=== PATIENT | female | born 1980 | race Caucasian/White ===

== ENCOUNTER 2020-05-09 16:38 | Emergency (ER) | payer OTHER ==
[2020-05-09 16:42] VITALS: TEMP 98.1
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
[2020-05-09] MEDS ORDERED: HYDROmorphone 1 MG/ML 1 ML SYRINGE IVP STA ×3 (17:00→19:53)
[2020-05-09] MEDS ORDERED: DIPH,PERTUS(ACELL)TETVAC-LF 0.5 ML VIAL IM ONE (17:01)
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
[2020-05-09] MEDS ORDERED: LIDOCAINE 1% INJ 10MG/ML (20 ML MDV) SQ STA (19:54)
--- NOTE | 2020-05-09 19:57 | XR ---
EXAMINATION TYPE: XR ankle limited RT DATE OF EXAM: 05/09/2020 COMPARISON: NONE HISTORY: Post reduction. Splinting. TECHNIQUE: 2 views 2 views were obtained through the cast that show impacted large fracture of the anterior malleolus a nd also vertical fracture through the medial malleolus. There is anterior displacement of the talus. Impression Intra-articular comminuted fracture of the distal tibia as above with mild anterior displacement of t he talus. No dislocation. No significant change in fragment position compared to initial exam.
[2020-05-09] MEDS ORDERED: MIDAZOLAM 1 MG/ML 5 ML VIAL IV STA ×2 (20:49→21:12)
--- NOTE | 2020-05-09 21:34 | XR ---
EXAMINATION TYPE: XR ankle complete RT DATE OF EXAM: 05/09/2020 COMPARISON: Today HISTORY: Post reduction TECHNIQUE: 3 views FINDINGS: There is anatomic reduction of the fracture of the medial and anterior malleolus. Talus is in normal position. IMPRESSION: Satisfactory reduction of the ankle fracture. No complicating process seen.
[2020-05-09] MEDS ORDERED: ACET/COD 300 MG/30 MG STARTER PACK 6 TAB BTL PO STA (21:52)
[2020-05-10 00:46] VITALS: BP 108/69; PULSE 69; RESP 18
== END 2020-05-09 23:00 | disposition home or self-care (01) ==
LOC: EC 16:38
DX: S82.891A Other fracture of right lower leg, initial encounter for closed fracture (principal); Z23 Encounter for immunization; F17.200 Nicotine dependence, unspecified, uncomplicated; V43.52XD Car driver injured in collision with other type car in traffic accident, subsequent encounter; Y92.410 Unspecified street and highway as the place of occurrence of the external cause; Z98.890 Other specified postprocedural states
CPT/HCPCS: 99284; 96374; 96376; 90471; 99156; 99157; 27818; 72170; 73590; 73600; 73610; 71045; 90715; J2001; J2250; J1170

== ENCOUNTER 2022-02-13 13:15 | Emergency (ER) | payer OTHER ==
[2022-02-13 15:04] VITALS: BP 114/82; PULSE 77; RESP 16; TEMP 98.4
[2022-02-13] MEDS ORDERED: AMOXIC-POT CLAV 875-125MG 1 EACH TAB PO STA (15:28)
[2022-02-13] MEDS ORDERED: KETOROLAC 15 MG/ML 1 ML VIAL IM STA (15:29)
--- NOTE | 2022-02-13 15:33 | ED ---
ENT HPI - General Chief complaint: Dental/Oral Stated complaint: Mouth pain Time Seen by Provider: 02/13/22 15:10 Source: patient Mode of arrival: ambulatory Limitations: no limitations - History of Present Illness Initial comments: Patient is a 41-year-old female presenting with chief complaint of dental pain. Patient has a known dental injury to tooth number 10. She states that yesterday she began to feel increased pain and pressure near the roof of her mouth adjacent to this tooth. She has been taking Motrin with no pain relief. She denies any shortness of breath or dysphagia. No fever or chills. No neck pain, headache, vision or hearing changes. No trismus, nausea, or vomiting. No chest pain or shortness of breath. No numbness or tingling. - Related Data Previous Rx's Medication Instructions Recorded Amoxic-Pot Clav 875-125Mg 1 tab PO Q12HR 7 Days #14 tab 02/13/22 [Augmentin 875-125] Allergies Allergy/AdvReac Type Severity Reaction Status Date / Time No Known Allergies Allergy Verified 02/13/22 15:04 Review of Systems ROS Statement: Those systems with pertinent positive or pertinent negative responses have been documented in the HPI. ROS Other: All systems not noted in ROS Statement are negative. Past Medical History Past Medical History: No Reported History History of Any Multi-Drug Resistant Organisms: None Reported Past Surgical History: Orthopedic Surgery Past Psychological History: No Psychological Hx Reported Smoking Status: Current every day smoker Past Alcohol Use History: Occasional Past Drug Use History: Marijuana General Exam Limitations: no limitations General appearance: alert, in no apparent distress Head exam: Present: atraumatic, normocephalic, normal inspection Eye exam: Present: normal appearance, EOMI. Absent: scleral icterus ENT exam: Present: mucous membranes moist, other (Normal posterior pharynx) Expanded Mouth exam: Present: normal external inspection, tongue normal. Absent: drooling, trismus, muffled voice Teeth exam: Present: dental caries, fractured tooth # (10), dental tenderness # (10), gingival enlargement Neck exam: Present: normal inspection. Absent: tenderness Respiratory exam: Present: normal lung sounds bilaterally. Absent: respiratory distress, wheezes, rales, rhonchi, stridor Cardiovascular Exam: Present: regular rate, normal rhythm, normal heart sounds. Absent: systolic murmur, diastolic murmur, rubs, gallop, clicks Neurological exam: Present: alert, oriented X3, CN II-XII intact Psychiatric exam: Present: normal affect, normal mood Skin exam: Present: warm, dry, intact, normal color. Absent: rash Course Vital Signs 02/13/22 15:03 Temperature 98.4 F Pulse Rate 77 Respiratory 16 Rate Blood Pressure 114/82 O2 Sat by Pulse 98 Oximetry Medical Decision Making - Medical Decision Making Patient is a 41-year-old female presenting with chief complaint of dental pain. Patient states pain began yesterday, also admits to increased pressure near tooth #10. Patient is aware that she needs this tooth removed, she has had difficulty getting in with her dentist. She has been taking Motrin which has not alleviated the pain. On inspection there is gingival enlargement adjacent to tooth #10, tooth #10 appears fractured and has noticeable sudheer. There is a noticeable area of fluctuance. Needle aspiration was used to drain 1 mL of pus from the abscess. Patient was given first dose of Augmentin here in the ER, the remainder of her 7 day course was sent to the pharmacy. Patient was given Toradol injection for pain control. Follow-up with dentist, dental referral was provided. Follow-up with PCP. Report back to ER if any worsening symptoms. I discussed return parameters answered all questions. Patient conveyed verbal understanding and agreed to the plan. Disposition Clinical Impression: Dental abscess Disposition: HOME SELF-CARE Condition: Good Instructions (If sedation given, give patient instructions): Dental Abscess (ED), Abscess Incision and Drainage (ED) Additional Instructions: Follow up with dentist in one to 2 days. If you do not have an established dentist, you may use [facility], located at [address] [place] [address]. Report back to ER with any worsening symptoms. Prescriptions: Amoxic-Pot Clav 875-125Mg [Augmentin 875-125] 1 tab PO Q12HR 7 Days #14 tab Is patient prescribed a controlled substance at d/c from ED?: No Referrals: None,Stated [Primary Care Provider] - 1-2 days Time of Disposition: 15:33
== END 2022-02-13 15:57 | disposition home or self-care (01) ==
LOC: EC 13:15
DX: K04.7 Periapical abscess without sinus (principal); F17.200 Nicotine dependence, unspecified, uncomplicated
CPT/HCPCS: 99282; 96372; J1885

== ENCOUNTER → 2022-02-23 | Outpatient (CLI) | payer OTHER ==
--- NOTE | 2022-02-23 15:41 | XR ---
EXAMINATION TYPE: XR ankle complete RT DATE OF EXAM: 02/23/2022 COMPARISON: 05/09/2020 HISTORY: Fracture TECHNIQUE: 3 view right ankle FINDINGS: Plate and screws from prior open reduction internal fixation of the distal tibia are eviden t. The ankle mortise appears intact. No acute fracture is identified. Follow-up exams can be performe d as clinically indicated. IMPRESSION: 1. No acute fracture post open reduction internal fixation right distal tibia with
== END | disposition home or self-care (01) ==
LOC: RADXRMAIN 14:36
PROVIDERS: ATTEND Physical Medicine & Rehabilitation
DX: Z96.698 Presence of other orthopedic joint implants (principal)

== ENCOUNTER → 2022-06-13 | Outpatient (CLI) | payer OTHER ==
--- NOTE | 2022-06-14 04:59 | MR ---
EXAMINATION TYPE: MR ankle RT wo con DATE OF EXAM: 06/13/2022 COMPARISON: None HISTORY: DISPLACED PILON FX R TIBIA Multiplanar multiecho imaging of the right ankle with no contrast. Ankle mortise is anatomic. There is metal artifact from multiple plates and screws fixing the distal tibia. No acute fracture seen. No evidence of focal bone destruction. The talus is intact. Achilles t endon is intact. Plantar fascia appears normal. The medial and lateral flexor tendons of the ankle ap pear intact. Extensor tendons appear intact. Subtalar joint appears normal. The bones of the midfoot appear intact. There is mild ankle joint space narrowing. IMPRESSION: Internal fixation of the distal tibia. No complicating process seen. No change in position compared t o ankle x-ray of 02/23/2022. There is some mild apparent post traumatic arthritic narrowing of the ankl e joint space.
== END | disposition home or self-care (01) ==
LOC: RADMRIMAIN 16:51
PROVIDERS: ATTEND Orthopaedic Surgery Orthopaedic Trauma
DX: S82.871D Displaced pilon fracture of right tibia, subsequent encounter for closed fracture with routine healing (principal)

== ENCOUNTER → 2023-09-03 | Outpatient (CLI) | payer OTHER ==
--- NOTE | 2023-09-03 19:07 | US ---
EXAMINATION TYPE: US pelvis complete transvag DATE OF EXAM: 09/03/2023 COMPARISON: NONE CLINICAL INDICATION: Female, 42 years old with history of N92.1EXCESSIVE AND FREQUENT MENSTRUATION WI TH IRRE; Patient is having irregular, frequent cycles, metrorrhagia. . *Patient is not having an y pelvic pain. TECHNIQUE: Transvaginal (TV) and Transabdominal (TA) . Transabdominal sonographic images of the pel vis were acquired. Transvaginal sonographic images were medically necessary to better assess the fol lowing anatomy: Left ovary Date of LMP: 08/24/2023 EXAM MEASUREMENTS: Uterus: 8.4 x 4.8 x 3.4 cm Endometrial Stripe: Right horn: 0.52 cm. Left horn: 0.41 cm Right Ovary: 6.0 x 3.6 x 3.2 cm Left Ovary: 3.0 x 2.0 x 1.5 cm 1. Uterus: Anteverted 2. Endometrium: Endometrium is possibly partially septated, two horns seen within the uterine fundus . 3. Right Ovary: *Enlarged. -Anechoic area seen with internal solid hyperechoic component:3.0 x 2.9 x 3.7 cm. Solid lesion measur es 0.7 x 0.7 x 0.8 cm. -Additional anechoic area seen: 2.9 x 2.7 x 3.5 cm. 4. Left Ovary: Anechoic area seen: 2.2 x 1.1 x 0.9 cm. Spectral, color and waveform doppler imaging shows arterial and venous flow within the right ovary. Waveforms shown due to enlarged right ovary. 5. Bilateral Adnexa: Appear wnl 6. Posterior cul-de-sac: Some fluid was seen. Urinary bladder is sonolucent. Posterior wall is normal. IMPRESSION: 1. A 3 cm cyst on the right ovary. This contains a solid component. Short-term follow-up is recommend ed in 6 weeks or following the next normal menstrual period. 2. Adjacent cysts or septated cyst within the right ovary.
== END | disposition home or self-care (01) ==
LOC: RADUSWWP 09:50
PROVIDERS: ATTEND Obstetrics & Gynecology
DX: N83.201 Unspecified ovarian cyst, right side (principal); N92.1 Excessive and frequent menstruation with irregular cycle
CPT/HCPCS: 76830; 76856

== ENCOUNTER → 2023-09-20 | Outpatient (CLI) | payer OTHER ==
--- NOTE | 2023-09-21 19:18 | MM ---
Reason for Exam: Screening (asymptomatic). Baseline mammogram. Patient History: Menarche at age 12. First Full-Term at age 32. Late child-bearing (after 30). Patient has history of breast feeding. Maternal aunt had breast cancer at or over age 50. Mother had breast cancer at or over age 50. Mother had ovarian cancer under age 50. Risk Values: Sweta 5 year model risk: 1.3%. NCI Lifetime model risk: 18.9%. Prior Study Comparison: Patient's first Mammogram. Tissue Density: The breast tissue is extremely dense which could obscure a lesion on mammography. Findings: Analyzed By CAD. Pattern appears symmetrical. There is a highly suspicious group of heterogenous calcifications upper outer aspect right breast 4 cm from the nipple. Additional workup recommended. Overall Assessment: Incomplete: need additional imaging evaluation, BI-RAD 0 Management: Diagnostic Mammogram of the right breast. A negative mammogram report should not preclude additional follow up of suspicious palpable abnormalities. Patient should continue monthly self breast exam. A clinical breast exam by your physician is recommended on an annual basis and results should be correlated with mammographic findings. Electronically signed and approved by: Alfonso Goodwin D.O. Radiologis
== END | disposition home or self-care (01) ==
LOC: RADMAMWWP 12:23
PROVIDERS: ATTEND Obstetrics & Gynecology
DX: Z12.31 Encounter for screening mammogram for malignant neoplasm of breast (principal); Z80.3 Family history of malignant neoplasm of breast
CPT/HCPCS: 77063; 77067

== ENCOUNTER → 2023-09-27 | Outpatient (CLI) | payer OTHER ==
--- NOTE | 2023-09-27 10:23 | MM ---
Reason for Exam: Additional evaluation requested from abnormal screening. Last screening mammogram was performed less than 1 month ago. Patient History: Menarche at age 12. First Full-Term at age 32. Late child-bearing (after 30). Patient has history of breast feeding. Maternal aunt had breast cancer at or over age 50. Mother had breast cancer at or over age 50. Mother had ovarian cancer under age 50. Risk Values: Sweta 5 year model risk: 1.3%. NCI Lifetime model risk: 18.9%. Prior Study Comparison: 09/20/2023 Bilateral MG 3D screening mammo w/cad, [facility]. Tissue Density: Right: The breast tissue is extremely dense which could obscure a lesion on mammography. Findings: Analyzed By CAD. With compression views there is persistence of a group of punctate calcifications in the upper outer right mid breast. Magnification views however appeared to displace the calcifications out of the [id number]. Technical difficulties with the radiation detectors made diagnostic magnification views technically nondiagnostic. Findings are suspicious. Stereotactic core biopsy cannot be performed due to the thin breast tissue. Surgical consultation for wire localization and excision is recommended. Overall Assessment: Suspicious, BI-RAD 4 Management: Surgical Consultation of the right breast. Needle Localization of the right breast. A negative mammogram report should not preclude additional follow up of suspicious palpable abnormalities. Patient should continue monthly self breast exam. A clinical breast exam by your physician is recommended on an annual basis and results should be correlated with mammographic findings. Electronically signed and approved by: Alfonso Goodwin D.O. Radiologis
== END | disposition home or self-care (01) ==
LOC: RADMAMWWP 09:22
PROVIDERS: ATTEND Obstetrics & Gynecology
DX: R92.341 Mammographic extreme density, right breast (principal); Z80.3 Family history of malignant neoplasm of breast
CPT/HCPCS: 77065; G0279; 77061

== ENCOUNTER → 2023-10-22 | Outpatient (CLI) | payer OTHER ==
--- NOTE | 2023-10-22 11:47 | US ---
EXAMINATION TYPE: US pelvic complete DATE OF EXAM: 10/22/2023 COMPARISON: US 09/03/2023 CLINICAL INDICATION: Female, 42 years old with history of N83.201 UNSPEC. OVARIAN CYST, RIGHT SIDER93 .89 ABN; Follow up from prior US. Hx right ovarian cyst. . Patient states she had irregular gloria ods for a couple months, and states her last period seemed normal. TECHNIQUE: Transabdominal (TA). Transabdominal sonographic images of the pelvis were acquired. Date of LMP: Patient unable to give exact date EXAM MEASUREMENTS: Uterus: 8.2 x 4.8 x 2.8 cm Endometrial Stripe: Right horn: 0.3 cm, Left Horn: 0.4 cm. Right Ovary: 3.8 x 2.3 x 2.6 cm Left Ovary: 2.7 x 1.7 x 1.8 cm 1. Uterus: Anteverted 2. Endometrium: Endometrium appears to have two horns fundally 3. Right Ovary: 2 anechoic areas seen, larger area measures 1.7 x 1.9 x 1.9 cm. -Hyperechoic focus seen within the ovary: 0.4 x 0.3 x 0.4 cm likely benign etiology possibly related to calcification. 4. Left Ovary: Anechoic area seen: 1.4 x 1.6 x 1.5 cm. 5. Bilateral Adnexa: Appear wnl 6. Posterior cul-de-sac: Appears wnl IMPRESSION: 1. No evidence for acute process. 2. Endometrium appears within normal limits for thickness. 3. Arcuate versus septate uterus morphology to the uterine fundus. 4. Simple appearing ovarian follicles bilaterally.
== END | disposition home or self-care (01) ==
LOC: RADUSWWP 10:16
PROVIDERS: ATTEND Obstetrics & Gynecology
DX: N83.201 Unspecified ovarian cyst, right side (principal); R93.89 Abnormal findings on diagnostic imaging of other specified body structures
CPT/HCPCS: 76856

== ENCOUNTER 2023-10-29 07:05 | Day surgery (SDC) | payer OTHER ==
[2023-10-24 15:43] VITALS: BMI 15.6
[~2023-10-29 07:05] MED LIST: HYDROmorphone 0.5 MG/0.5 ML SYRINGE IVP PRN; LIDOCAINE 1% (10MG/ML) FOR IV START INTRADERMA PRN; droPERidol 5 MG/2 ML VIAL IVP ONE
[2023-10-29] MEDS: ACETAMINOPHEN TAB 500 MG TAB PO PRN (07:43)
[2023-10-29] MEDS: LACTATED RINGERS 1,000 ML IV SCH (07:44)
[2023-10-29] MEDS ORDERED: ALPRAZolam 0.25 MG TAB ONE ×2 (07:48→07:51)
[2023-10-29] MEDS: ALPRAZolam 0.25 MG TAB PO ONE (07:51)
[2023-10-29] MEDS: LIDOCAINE 1% INJ 10MG/ML (20 ML MDV) SQ ONE (08:42)
[2023-10-29 09:04] VITALS: TEMP 98.1
[2023-10-29] MEDS: DEXAMETHASONE SOD PHOSPHATE 4 MG/ML 1 ML VIAL IV ONE (09:22)
[2023-10-29] MEDS: HEPARIN SODIUM,PORCINE 5,000 UNIT/ML 1 ML VIAL SQ PRN (09:22)
[2023-10-29] MEDS: ONDANSETRON 4 MG/2 ML VIAL IVP ONE (09:22)
[2023-10-29] MEDS ORDERED: ePHEDrine 50 MG/ML 1 ML VIAL ONE (11:08)
[2023-10-29] MEDS ORDERED: LIDOCAINE 1% INJ 10MG/ML (20 ML MDV) ONE (11:08)
[2023-10-29] MEDS ORDERED: fentaNYL (PF) 50 MCG/ML 2 ML AMP ONE (11:08)
[2023-10-29] MEDS ORDERED: MIDAZOLAM 2 MG/2 ML VIAL ONE (11:08)
[2023-10-29] MEDS ORDERED: PROPOFOL 10 MG/ML 20 ML VIAL IV ONE (11:08)
[2023-10-29] MEDS: BUPIVACAINE (PF) 0.25% 30 ML VIAL SQ ONE ×2 (11:36)
[2023-10-29] MEDS ORDERED: NALOXONE 0.4 MG/ML 1 ML VIAL IV PRN (12:00)
--- NOTE | 2023-10-29 12:02 | P.OP ---
Date of Procedure: 10/29/23 Procedure(s) Performed: PREOPERATIVE DIAGNOSIS: Abnormal right mammogram POSTOPERATIVE DIAGNOSIS: Same PROCEDURE: Right breast wire localization biopsy SURGEON: Lang EBL: Minimal ANESTHESIA: General plus local COMPLICATIONS: None OPERATIVE PROCEDURE: Patient was placed on the operating room table in the tucker pine position. The patient's breast was prepped and draped in usual sterile fashion. A curvilinear incision was made adjacent to the wire entrance site. I followed the wire down into the breast tissue. The breast tissue around the tip of the wire was fully excised using electrocautery. The specimen was sent for specimen radiogram. The clip was present within the specimen. The subcutaneous tissues were inspected. No bleeding was seen. The subcutaneous tissues were closed using 3-0 Vicryl sutures. The skin was closed using a running 4-0 Monocryl stitch. Skin glue and sterile dressings were applied. DISPOSITION: Stable to recovery room
[2023-10-29 14:04] VITALS: BP 92/53; PULSE 65; RESP 18
--- NOTE | 2023-11-02 12:08 | MM ---
Risk Values: Sweta 5 year model risk: 1.3%. NCI Lifetime model risk: 18.9%. Pathology Description: Approach: Lateral to Medial Needle Type: 5 cm Kopan The right breast 10:00 grouped microcalcifications are identified and targeted for needle localization. The procedure of needle localization with wire placement and than surgical excision was explained to the patient. Benefits, alternatives, and risks were discussed. An informed consent was then obtained. The shortest pathway for procedure was chosen. Shortest pathway was a lateral approach. The overlying skin was prepped and draped in usual sterile fashion. Lidocaine was used as anesthetic into the skin and subcutaneous tissue up to the level of area of concern. A 5 cm Kopans needle was used. It was placed via a lateral approach under mammographic guidance. Subsequent 90 degrees mammogram show the needle to be in satisfactory position relative to the targeted area. At this point, wire was placed and the needle was withdrawn. The wire was fixed to patient's skin. Images were marked for surgeon. The patient tolerated the procedure well without any immediate complication. The patient was kept in the radiology department for short stay after the procedure and then taken to surgery for surgical excision. Targeted calcifications and wire are identified in specimen mammogram. The patient was kept in hospital for short stay after the procedure and then discharged home in stable condition. IMPRESSION: Successful, uncomplicated needle localization with wire placement and surgical excision of suspicious group of calcifications in the 10:00 right breast (patient not amenable to stereotactic core needle biopsy), full pathology results to follow. Pathology Results: Result: Benign, Fibrocystic change. RIGHT BREAST MASS, NEEDLE LOCALIZATION EXCISION: Benign breast tissue with fibrocystic changes. Overall Assessment: Benign Management: Diagnostic Mammogram of the right breast in 6 months. Electronically signed and approved by: Paige Alfaro M.D. Radiologist
== END 2023-10-29 13:47 | disposition home or self-care (01) ==
LOC: OR 07:05
PROVIDERS: ATTEND Surgery
DX: N63.10 Unspecified lump in the right breast, unspecified quadrant (principal); G89.29 Other chronic pain; F17.210 Nicotine dependence, cigarettes, uncomplicated; Z79.899 Other long term (current) drug therapy
CPT/HCPCS: 19125; 81025; 88307; 76098; 19281; C1819; J2250; J1644; J1100; J2405; J0690; J2001; J3010; J2704; J0665